=== PATIENT | male | born 1985 | race Caucasian/White ===

== ENCOUNTER 2022-09-27 16:30 | Inpatient (IN) | payer MEDICAID ==
[~2022-09-27] VITALS: Ht 172.7 cm; Wt 68.0 kg
[2022-09-27 16:30] VITALS: BP_SYST 110
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
--- NOTE | 2022-09-27 17:10 | NUR ---
AWAITING ER BED AVAILABILITY
[2022-09-27] MEDS ORDERED: ONDA-8 TL (18:51)
[2022-09-27] MEDS ORDERED: IBUP-1969 PO (18:51)
[2022-09-27] MEDS ORDERED: HYDR-3917 PO (18:51)
[2022-09-27] MEDS ORDERED: HYDROcodone/ACETAMIN 5-325 MG TAB (NORCO/ VICODIN) PO ONE (19:00)
--- NOTE | 2022-09-27 19:32 | NUR ---
Patient to [facility] for evaluation. Report given to STACIE NUNEZ
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
[2022-09-27] MEDS ORDERED: NACL 0.9% 1,000 ML IV ONE (19:45)
[2022-09-27] MEDS ORDERED: MORPHINE 4 MG INJ. 4 MG/ML VIAL IVP ONE (19:45)
[2022-09-27] MEDS ORDERED: ONDANSETRON HCL 4 MG/2 ML VIAL IVP ONE (19:45)
--- NOTE | 2022-09-27 19:53 | NUR ---
COVID SWAB COLLECTED AND GIVEN TO GIZZARD PULLER.
[2022-09-27 20:21] LABS: ALBUMIN 3.6 g/dL (3.4-4.8); CALCIUM 8.8 mg/dL (8.4-11.0); CREATININE 0.87 mg/dL (0.55-1.30); TOTAL BILIRUBIN 0.6 mg/dL (0.0-1.0)
[2022-09-27 20:27] LABS: BASOPHILS # (AUTO) 0.1 K/uL (0.0-0.2); BASOPHILS % (AUTO) 0.8 % (0.0-2.0); EOSINOPHILS # (AUTO) 0.1 K/uL (0.0-0.4); EOSINOPHILS % (AUTO) 1.2 % (0.0-4.0); HEMATOCRIT 40.2 % (36-54); HEMOGLOBIN 13.9 g/dL (14.0-18.0); LYMPHOCYTES # (AUTO) 1.5 K/uL (1.0-5.5); LYMPHOCYTES % (AUTO) 15.6 % (20.5-51.5); MEAN CORPUSCULAR HEMOGLOBIN 31 pg (27-31); MEAN CORPUSCULAR HGB CONC 35 % (32-36); MEAN CORPUSCULAR VOLUME 89 fL (79.0-98.0); MONOCYTES # (AUTO) 0.9 K/uL (0.0-1.0); MONOCYTES % (AUTO) 9.4 % (1.7-9.3); NEUTROPHILS # (AUTO) 7.1 K/uL (1.8-7.7); PLATELET COUNT (AUTO) 333 K/uL (130-430); RED BLOOD CELL COUNT(AUTO) 4.54 MIL/uL (4.2-6.2); RED CELL DISTRIBUTION WIDTH 13.1 % (9.0-15.0); WHITE BLOOD COUNT (AUTO) 9.7 K/uL (4.8-10.8)
--- NOTE | 2022-09-27 21:09 | NUR ---
PT RESTING IN BED WITH EYES CLOSED. EVEN AND UNLABORED RESP NOTED. NAD. SAFETY PRECAUTIONS IN PLACE AND CONNECTED TO MONITOR.
--- NOTE | 2022-09-27 21:21 | NUR ---
PT DENIES TAKING HOME MEDICATIONS AT THIS TIME.
[2022-09-27] MEDS ORDERED: MORPHINE 2 MG/ML INJ. SYRINGE IVP PRN (23:15)
[2022-09-27] MEDS ORDERED: D5/0.45 NS 1,000 ML IV ONE (23:15)
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
[2022-09-27] MEDS ORDERED: IPRATROPIUM/ALBUTEROL SULFATE 3 ML AMPUL.NEB (DUONEB) INH PRN (23:45)
[2022-09-27] MEDS: MORPHINE 2 MG/ML INJ. SYRINGE IVP PRN (23:50)
--- NOTE | 2022-09-27 23:57 | NUR ---
Patient will be admitted to care of DR. BLACKWELL. Admitted to MED SURG unit. Will go to room 118B. Belongings list completed. Complete and up to date summary report printed. SBAR report given to STACIE FLORES at bedside with opportunity for questions.
[2022-09-28] VITALS (11 sets, daily range): BP systolic 113–135
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
[2022-09-28 05:17] LABS: BASOPHILS # (AUTO) 0.1 K/uL (0.0-0.2); EOSINOPHILS # (AUTO) 0.3 K/uL (0.0-0.4); HEMATOCRIT 39.3 % (36-54); HEMOGLOBIN 13.3 g/dL (14.0-18.0); LYMPHOCYTES # (AUTO) 1.8 K/uL (1.0-5.5); LYMPHOCYTES % (AUTO) 27.4 % (20.5-51.5); MEAN CORPUSCULAR HEMOGLOBIN 30 pg (27-31); MEAN CORPUSCULAR HGB CONC 34 % (32-36); MEAN CORPUSCULAR VOLUME 89 fL (79.0-98.0); MONOCYTES # (AUTO) 0.8 K/uL (0.0-1.0); NEUTROPHILS # (AUTO) 3.7 K/uL (1.8-7.7); NEUTROPHILS % (AUTO) 55.6 % (40.0-70.0); PLATELET COUNT (AUTO) 320 K/uL (130-430); WHITE BLOOD COUNT (AUTO) 6.7 K/uL (4.8-10.8)
[2022-09-28 05:47] LABS: ALBUMIN 2.9 g/dL (3.4-4.8); CALCIUM 8.5 mg/dL (8.4-11.0); CREATININE 0.99 mg/dL (0.55-1.30); TOTAL BILIRUBIN 0.6 mg/dL (0.0-1.0)
[2022-09-28] MEDS: MORPHINE 2 MG/ML INJ. SYRINGE IVP PRN ×3 (09:01→21:09)
[2022-09-28] MEDS ORDERED: IBUP-1969 PO (13:23)
--- NOTE | 2022-09-28 14:00 | NUR ---
Patient attempted to get up out of bed with assistance. Patient unable to walk.
--- NOTE | 2022-09-28 14:00 | NUR ---
medicated patient for pain prior to walking.
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
[2022-09-29] VITALS: BP_SYST 135
[2022-09-29] MEDS: MORPHINE 2 MG/ML INJ. SYRINGE IVP PRN ×2 (01:10→10:04)
[2022-09-29 08:00] VITALS: BP_SYST 120
[2022-09-29 11:28] VITALS: BP_SYST 128
--- NOTE | 2022-09-29 13:44 | NUR ---
Fumigator And Sterilizer VISUAL PRESENTATION MANAGER met with pt. to provide clothing and ask if he needed an Uber ride . Pt did not know he was being discharged. VISUAL PRESENTATION MANAGER spoke to Rn. Hairston who stated pt. re. from PT is to a SNF. VISUAL PRESENTATION MANAGER called pts. mom Razia Stoner who stated she will come pick him up at 5pm today. VISUAL PRESENTATION MANAGER notified Rn. Hairston of this plan. VISUAL PRESENTATION MANAGER will remain available as needed.
--- NOTE | 2022-09-29 15:30 | NUR ---
PHYSICAL THERAPY CO-SIGN The Physical Therapy Progress Notes documented by Pharmaceutical Operator have been reviewed. Reviewed/Co-Signed by: Marcin Bryson Documentation Done by:CHENCHO TAPIA Addendum: 09/29/22 at 1531 by Marcin Bryson PT Amended: Links added.
[2022-09-29 16:58] VITALS: BP_SYST 122
== END 2022-09-29 19:30 | disposition home or self-care (01) | DRG 135 ==
LOC: SED 16:30 → SMU 23:12
PROVIDERS: ADMIT Internal Medicine; ATTEND Internal Medicine
DX: S22.42XA Multiple fractures of ribs, left side, initial encounter for closed fracture (principal); Z20.822 Contact with and (suspected) exposure to COVID-19; Z79.1 Long term (current) use of non-steroidal anti-inflammatories (NSAID); W18.39XA Other fall on same level, initial encounter; Z79.899 Other long term (current) drug therapy; Z79.891 Long term (current) use of opiate analgesic; Z88.0 Allergy status to penicillin; Y93.89 Activity, other specified; Y92.89 Other specified places as the place of occurrence of the external cause; Y99.8 Other external cause status
CPT/HCPCS: 36415; 71045; 71100; 80053; 85025; 94010; 96361; 96374; 96375; 97110-GP; 97116-GP; 97163-GP; 97530-GP; 99285; J2270; J2405